=== PATIENT | male | born 2000 | race Caucasian/White ===

== ENCOUNTER 2021-02-09 09:49 | Emergency (ER) | payer OTHER ==
[2021-02-09 10:04] VITALS: BP 136/69
[2021-02-09] MEDS ORDERED: BUFFERED LIDOCAINE 10 ML SYRINGE SUBQ STA (11:31)
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
== END 2021-02-09 12:05 | disposition home or self-care (01) ==
LOC: ED 09:49
DX: L05.01 Pilonidal cyst with abscess (principal)
CPT/HCPCS: 10061

== ENCOUNTER 2021-05-04 21:59 | Emergency (ER) | payer OTHER ==
[2021-05-04 22:11] VITALS: BP 140/87
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
== END 2021-05-04 22:18 | disposition home or self-care (01) ==
LOC: ED 21:59
DX: F12.10 Cannabis abuse, uncomplicated (principal); R04.0 Epistaxis; Y33.XXXA Other specified events, undetermined intent, initial encounter
CPT/HCPCS: 99281; 99282